=== PATIENT | male | born 1995 | race Caucasian/White ===

== ENCOUNTER 2022-09-29 17:10 | Emergency (ER) | payer OTHER ==
[2022-09-29 17:41] VITALS: BP 136/73; PULSE 82; O2SAT 99
--- NOTE | 2022-09-29 18:58 | ERPHSYRPT ---
- History of Present Illness Source: patient, other () Exam Limitations: no limitations Patient Subjective Stated Complaint: pt reports generalized rash to arms, legs, buttocks and genitals. states he believes his work uniform is causing the irritation, his uniform is laundered by [employer] through his employer. Triage Nursing Assessment: pt is aox3, pupils perrl, afebrile, resps easy and non labored, cap refill < 3 seconds, radial pulses strong and equal, pt with gen eralized rash to bilat arms, upper legs, buttocks, and genitals, skin appears dry, with some intermittent raised areas that are intact. Physician History: 27 yo wm w diffuse rash x 7 months. Rash is diffuse and seems to be worse w hot water. 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 It is pruritic. He denies fever/sore throat/Hepatitis. Pt also has a long h/o a rash on his glans which is worse w sexual intercourse w his . He denies penile discharge. Timing/Duration: other (7 months) Quality: itchy Severity: mild Location: generalized Possible Causes: no cause identified Modifying Factors: Improves With: other (Worse w hot water) Associated Symptoms: denies symptoms Hx Tetanus, Diphtheria Vaccination/Date Given: Yes Hx Influenza Vaccination/Date Given: No Hx Pneumococcal Vaccination/Date Given: No Immunizations Up to Date: Yes Travel Risk - International Travel Have you traveled outside of the country in past 3 weeks: No - Coronavirus Screening Are you exhibiting any of the following symptoms?: No Close contact with a COVID-19 positive Pt in past 14-21 Days: No - Vaccine Status Have you recieved a Covid-19 vaccination: No - Review of Systems Constitutional: No Symptoms Eyes: No Symptoms Ears, Nose, & Throat: No Symptoms Respiratory: No Symptoms Cardiac: No Symptoms Abdominal/Gastrointestinal: No Symptoms Genitourinary Symptoms: Incontinence Musculoskeletal: No Symptoms Skin: No Symptoms, Rash Neurological: No Symptoms Psychological: No Symptoms Endocrine: No Symptoms Hematologic/Lymphatic: No Symptoms Immunological/Allergic: No Symptoms - Past Medical History Pertinent Past Medical History: No - Past Surgical History Past Surgical History: No - Social History Smoking Status: Current every day smoker Drug Use: none Patient Lives Alone: No Significant Family History: no pertinent family hx - Nursing Vital Signs Nursing Vital Signs: Initial Vital Signs Temperature 98.0 F 09/29/22 17:21 Pulse Rate 82 09/29/22 17:21 Respiratory Rate 18 09/29/22 17:21 Blood Pressure 136/73 09/29/22 17:21 O2 Sat by Pulse Oximetry 99 09/29/22 17:21 Pain Scale Pain Intensity 0 WNL - Physical Exam General Appearance: no apparent distress Eye Exam: PERRL/EOMI, eyes nml inspection Ears, Nose, Throat Exam: normal ENT inspection, TMs normal, pharynx normal, moist mucous membranes Neck Exam: normal inspection, non-tender, supple, full range of motion, No meningismus, No mass, No Brudzinski, No Kernig's Respiratory Exam: normal breath sounds, lungs clear, airway intact, No respiratory distress Cardiovascular Exam: regular rate/rhythm, normal heart sounds, normal peripheral pulses, capillary refill <2 sec, No murmur Gastrointestinal/Abdomen Exam: soft, normal bowel sounds, No tenderness Male Genitalia Exam: other (No discharge/Several areas on glans which do not appear to be herpetic, or canker sores) Back Exam: normal inspection, normal range of motion Neurologic Exam: alert, oriented x 3, cooperative, 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 Miramontes Rash most likely eczema or contact dermatitis Counseled pt/family regarding: diagnosis, need for follow-up - Departure Departure Disposition: Home Clinical Impression: Eczema, Contact dermatitis Condition: Stable Critical Care Time: No Referrals: DOCTOR,NO FAMILY [Primary Care Provider] - Follow up/PCP as directed Instructions: Contact Dermatitis (DC), Eczema (Atopic Dermatitis) (DC) Additional Instructions: Apply Ultravate twice a day for up to 10 days Do not use on genital area Follow up with Dr. Miramontes Return to ER for worsening rash or temperature greater than 100.5 Prescriptions: Halobetasol Propionate [Ultravate] 60 ml TP BID 10 Days #60 ml
== END 2022-09-29 19:12 | disposition home or self-care (01) ==
LOC: ED 17:10
DX: L25.9 Unspecified contact dermatitis, unspecified cause (principal); Z28.310 Unvaccinated for COVID-19; Z72.0 Tobacco use
CPT/HCPCS: 99281